=== PATIENT | male | born 2000 | race Caucasian/White ===

== ENCOUNTER 2021-03-02 08:55 | Emergency (ER) | payer SELFPAY ==
[2021-03-02 09:09] VITALS: BP 137/78; PULSE 76; RESP 16; TEMP 36.7; O2SAT 95; BMI 33.7
--- NOTE | 2021-03-02 09:27 | ED_ITS ---
HPI - Skin/Abscess/Foreign Bdy General: Chief complaint: Skin/Abscess/Foreign Body Stated complaint: rash Time Seen by Provider: 03/02/21 08:56 Source: patient Mode of arrival: ambulatory Limitations: no limitations History of Present Illness: HPI narrative: Patient is a nice 21-year-old male who presents to ED today with a complaint of a rash to his left forearm, anterior chest and abdomen, and face. He states rash is burning and pruritic and has noticed a few areas of weeping. He does state he is active and often outside. No systemic symptoms. MD complaint: rash Onset (ago): day(s) Tetanus up to date: yes Location: generalized Severity: moderate Quality: burning and pruritic Relieving factors: none Exacerbating factors: none Associated symptoms: Reports no associated symptoms; Deny chills, fever(s), nausea or vomiting Treatments prior to arrival: none Review of Systems Const: Denies: fever(s), chills, body aches, fatigue or malaise Eyes: Denies: change in vision or blurry vision ENMT: Denies: odynophagia, nasal discharge or nasal congestion Card: Denies: chest pain Resp: Denies: dyspnea GI: Denies: abdominal pain, nausea or vomiting Musc: Denies: neck pain, back pain, extremity pain or joint pain Skin/Breast: Reports: rash and pruritus Neuro: Denies: headache(s), numbness in extremities, weakness in extremities or sensory changes Physical Exam Const: COMMON NORMALS: no acute distress, patient oriented x3, no limitations and alert GENERAL APPEARANCE: cooperative Neck/C-Spine: COMMON NORMALS: no lymphadenopathy and no meningeal signs Resp: COMMON NORMALS: normal respiratory effort Extremity: GENERAL: Yes normal exam except as noted Neuro: COMMON NORMALS: patient oriented x3 SENSORIUM/ORIENTATION: Yes alert MENINGEAL SIGNS: Yes no meningeal signs Skin: NARRATIVE SKIN EXAM: eythematous maculopapular rash with few areas of linear streaking and weeping/yellow crusting to L dorsal forearm, under R orbit and over anterior chest/abdomen; rash is consistent with plant dermatitis Course Vital Signs: Vital signs: Vital Signs Temperature 98.0 F 03/02/21 09:09 Pulse Rate 76 03/02/21 09:09 Respiratory Rate 16 03/02/21 09:09 Blood Pressure 137/78 03/02/21 09:09 Pulse Oximetry 95 03/02/21 09:09 Discharge Plan Discharge Patient Disposition: Home Clinical Impression: Contact dermatitis due to plant Condition: Stable Discharge Orders: Discharge ED (Routine); Ordered 03/02/21 Ordered By: Kendra Jalloh Patient Instructions: [place] [place] (ED), [facility] [place], [place], and [place] - Adult Coding Level of Care Code ED Gardening Instructor for Chg Fwd Exam Expanded Problem Focused
[2021-03-02] MEDS: triamcinolone 40 mg/mL SDV IM (09:43)
[2021-03-02] MEDS: hydrocortisone 100 mg/2 mL SDV IM (09:44)
== END 2021-03-02 09:49 | disposition home or self-care (01) ==
PROVIDERS: Emergency Provider Physician Assistant
DX: L25.5 Unspecified contact dermatitis due to plants, except food (principal)
CPT/HCPCS: 96372; 99283; J1720; J3301

== ENCOUNTER 2022-01-05 14:43 | Emergency (ER) | payer SELFPAY ==
[2022-01-05 15:15] VITALS: BP 136/94; PULSE 55; RESP 18; TEMP 36.6; O2SAT 100; BMI 36.0
[2022-01-05 15:43] LABS: Basophils # 0.1 10^3/uL (0.0-0.1); Basophils % 0.3 %; Eosinophils % 0.2 %; Hematocrit 47.7 % (42.0-52.0); Hemoglobin 16.8 g/dL (11.7-16.6); Lymphocytes # 1.3 10^3/uL (0.8-4.8); Lymphocytes % 6.2 %; Mean Corpuscular HGB Conc 35.2 g/dL (30.0-36.0); Mean Corpuscular Hemoglobin 29.3 pg (28.0-34.0); Mean Corpuscular Volume 83.1 fl (80-94); Mean Platelet Volume 10.5 fL (7.4-10.4); Monocytes # 0.6 10^3/uL (0.2-0.9); Neutrophils # 18.49 10^3/uL (1.8-7.7); Nucleated Red Blood Cells % 0 %; Platelet Count 277 10^3/cmm (130-400); Red Blood Count 5.74 10^6/uL (4.1-5.3); White Blood Count 20.6 10^3/uL (4.0-10.0)
[2022-01-05 16:08] LABS: Alanine Aminotransferase 30 U/L (0-41); Albumin Level 4.9 g/dL (3.5-5.2); Alkaline Phosphatase 77 IU/L (40-130); Anion Gap 16.5 (5-19); Aspartate Amino Transferase 19 U/L (0-40); Blood Urea Nitrogen 11 mg/dL (6-20); Calcium 9.2 mg/dL (8.5-10.5); Carbon Dioxide 25 mmol/L (22-29); Chloride 101 mmol/L (98-107); Globulin 2.5 g/dL (1.3-4.6); Glucose 111 mg/dL (65-115); Lipase 22 U/L (13-60); Osmolality Calculated 286 mOsm/kg (285-295); Potassium 4.5 mmol/L (3.5-5.1); Sodium 138 mmol/L (136-145); Total Bilirubin 0.7 mg/dL (0.15-1.2); Total Protein 7.4 g/dL (6.6-8.7)
[2022-01-05 16:12] LABS: Add Urine Microscopic? YES; Bilirubin Urine Neg (Negative); Blood Urine 2+ (Negative); Glucose Urine UA Norm (Normal); Ketones Urine Negative (Negative); Leukocyte Esterase Urine Negative (Negative); Nitrate Urine Negative (Negative); Protein Urine Neg (Negative); Urine Appearance Clear (CLEAR); Urine Color Dark Yellow (Yellow); Urobilinogen Urine Norm (Negative); pH Urine 5 (5-7)
--- NOTE | 2022-01-05 16:14 | CTR_ITS ---
PROCEDURE INFORMATION: Exam: CT Abdomen And Pelvis Without Contrast Exam date and time: 01/05/2022 4:38 PM Age: 21 years old Clinical indication: Abdominal pain; Additional info: Periumbilical/lower ab pain; N/v/d TECHNIQUE: Imaging protocol: Computed tomography of the abdomen and pelvis without contrast. Radiation optimization: All CT scans at this facility use at least one of these dose optimization techniques: automated exposure control; mA and/or kV adjustment per patient size (includes targeted exams where dose is matched to clinical indication); or iterative reconstruction. COMPARISON: No relevant prior studies available. RADIATION DOSE METRICS: Total DLP (mGy-cm): 1552.34 FINDINGS: Liver: Normal. No mass. Gallbladder and bile ducts: Normal. No calcified stones. No ductal dilation. Pancreas: Normal. No ductal dilation. Spleen: Normal. No splenomegaly. Adrenal glands: Normal. No mass. Kidneys and ureters: Normal. No hydronephrosis. Stomach and bowel: Unremarkable. No obstruction. No mucosal thickening. Appendix: No evidence of appendicitis. Intraperitoneal space: Unremarkable. No free air. No significant fluid collection. Vasculature: Unremarkable. No abdominal aortic aneurysm. Lymph nodes: Unremarkable. No enlarged lymph nodes. Urinary bladder: Unremarkable as visualized. Reproductive: Unremarkable as visualized. Bones/joints: No acute fracture. Soft tissues: Unremarkable. CT/CT abdomen pelvis con [id number] IMPRESSION: No acute findings.
--- NOTE | 2022-01-05 16:14 | ED_ITS ---
Documented by User: HERB Carrington 01/10/22 07:01 HPI - Abdominal Pain General: Chief Complaint: Abdominal Pain Stated Complaint: Sever ABD pain Time Seen by Provider: 01/05/22 15:21 Source: patient Mode of arrival: ambulatory Limitations: no limitations History of Present Illness: Patient is a nice 21-year-old female presents to ED today with a complaint of abdominal pain. Patient states he woke up this morning around 9 AM with pain localized around his periumbilical region and lower abdomen. He states throughout the course of the day the pain has progressively worsened. He is reporting approximately 6 episodes of nonbilious nonbloody emesis and 5 episodes of nonbloody and nonmelanotic diarrhea stools. He states he has not been running fevers but does have chills/sweats. He denies urinary symptoms. No flank pain. Patient has no significant PMH. No previous abdominal surgeries. Denies poor food exposures. MD elicited complaint: abdominal pain Pertinent past history: none Onset (ago): hour(s) Pain Consistency: constant Location: Periumbilical, RLQ, LLQ and Pelvis Severity: severe Quality: cramping and aching Radiation: none Migration to: no migration Exacerbating factors: nothing Relieving factors: nothing Associated Symptoms: Denies dysuria and hematuria Review of Systems GI: Reports: abdominal pain : Denies: flank pain, dysuria, hematuria or genital pain Musc: Denies: neck pain, back pain, extremity pain or joint pain Skin/Breast: Denies: rash Neuro: Denies: headache(s), numbness in extremities, weakness in extremities, sensory changes or dizziness Physical Exam Const: COMMON NORMALS: no limitations GENERAL APPEARANCE: cooperative and in distress (appears uncomfortable secondary to pain/nausea) NUTRITIONAL APPEARANCE: obese ORIENTATION/CONSCIOUSNESS: Yes awake, Yes oriented to person, Yes oriented to place and Yes oriented to time Resp: COMMON NORMALS: clear to auscultation bilaterally AUSCULTATION: clear to auscultation bilaterally Cardio: COMMON NORMALS: regular rhythm RHYTHM: regular rhythm GI: COMMON NORMALS: no masses INSPECTION: Yes normal to inspection : COMMON NORMALS: Yes no CVA tenderness BLADDER/KIDNEY EXAM: Yes no CVA tenderness Back/Pelvis: COMMON NORMALS: no CVA tenderness Neuro: SENSORIUM/ORIENTATION: Yes oriented to person, Yes oriented to place and Yes oriented to time Course Vital Signs: Vital signs: Vital Signs Temperature 96.5 F L 01/05/22 18:04 Pulse Rate 60 01/05/22 18:04 Respiratory Rate 20 H 01/05/22 18:04 Blood Pressure 158/96 01/05/22 18:04 Pulse Oximetry 98 01/05/22 18:04 MDM - Abdominal Pain Lab Data : 01/05/22 15:25 01/05/22 15:25 Labs/Radiology: Radiology Impressions Abdomen/Pelvis CT 01/05/22 16:14 IMPRESSION: No acute findings. Laboratory Results WBC 20.6 10^3/uL (4.0-10.0) H 01/05/22 15:25 RBC 5.74 10^6/uL (4.1-5.3) H 01/05/22 15:25 Hgb 16.8 g/dL (11.7-16.6) H 01/05/22 15:25 Hct 47.7 % (42.0-52.0) 01/05/22 15:25 MCV 83.1 fl (80-94) 01/05/22 15:25 MCH 29.3 pg (28.0-34.0) 01/05/22 15:25 MCHC 35.2 g/dL (30.0-36.0) 01/05/22 15:25 RDW 13.0 % (12.1-15.1) 01/05/22 15:25 Plt Count 277 10^3/cmm (130-400) 01/05/22 15:25 MPV 10.5 fL (7.4-10.4) H 01/05/22 15:25 Neut % (Auto) 90.0 % 01/05/22 15:25 Lymph % (Auto) 6.2 % 01/05/22 15:25 [place] % (Auto) 3.0 % 01/05/22 15:25 Eos % (Auto) 0.2 % 01/05/22 15:25 Baso % (Auto) 0.3 % 01/05/22 15:25 Neut # (Auto) 18.49 10^3/uL (1.8-7.7) H 01/05/22 15:25 Lymph # (Auto) 1.3 10^3/uL (0.8-4.8) 01/05/22 15:25 [place] # (Auto) 0.6 10^3/uL (0.2-0.9) 01/05/22 15:25 Eos # (Auto) 0.0 10^3/uL (0.0-0.8) 01/05/22 15:25 Baso # (Auto) 0.1 10^3/uL (0.0-0.1) 01/05/22 15:25 Nucleated RBC % (auto) 0 % 01/05/22 15:25 Nucleated RBCs # 0.0 /100WBC 01/05/22 15:25 Sodium 138 mmol/L (136-145) 01/05/22 15:25 Potassium 4.5 mmol/L (3.5-5.1) 01/05/22 15:25 Chloride 101 mmol/L (98-107) 01/05/22 15:25 Carbon Dioxide 25 mmol/L (22-29) 01/05/22 15:25 Anion Gap 16.5 (5-19) 01/05/22 15:25 BUN 11 mg/dL (6-20) 01/05/22 15:25 Creatinine 0.7 mg/dL (0.7-1.2) 01/05/22 15:25 GFR Calculation 141.0 mL/min (90-130) H 01/05/22 15:25 Glucose 111 mg/dL (65-115) 01/05/22 15:25 Calculated Osmolality 286 mOsm/kg (285-295) 01/05/22 15:25 Calcium 9.2 mg/dL (8.5-10.5) 01/05/22 15:25 Total Bilirubin 0.7 mg/dL (0.15-1.2) 01/05/22 15:25 AST 19 U/L (0-40) 01/05/22 15:25 ALT 30 U/L (0-41) 01/05/22 15:25 Alkaline Phosphatase 77 IU/L (40-130) 01/05/22 15:25 Total Protein 7.4 g/dL (6.6-8.7) 01/05/22 15:25 Albumin 4.9 g/dL (3.5-5.2) 01/05/22 15:25 Globulin 2.5 g/dL (1.3-4.6) 01/05/22 15:25 Lipase 22 U/L (13-60) 01/05/22 15:25 Urine Color Dark yellow (Yellow) 01/05/22 15:30 Urine Appearance Clear (CLEAR) 01/05/22 15:30 Urine pH 5 (5-7) 01/05/22 15:30 Ur Specific [place] 1.020 (1.005-1.030) 01/05/22 15:30 Urine Protein Neg (Negative) 01/05/22 15:30 Urine Glucose (UA) Norm (Normal) 01/05/22 15:30 Urine Ketones Negative (Negative) 01/05/22 15:30 Urine Blood 2+ (Negative) H 01/05/22 15:30 Urine Nitrate Negative (Negative) 01/05/22 15: Urine Bilirubin Neg (Negative) 01/05/22 15:30 Urine Urobilinogen Norm mg/dL (Negative) 01/05/22 15:30 Ur Leukocyte Esterase Negative (Negative) 01/05/22 15:30 Urine RBC 0-4 /hpf (0-2) H 01/05/22 15:30 Urine WBC 0-4 /hpf (0-5) H 01/05/22 15:30 Ur Squamous Epith Cells 0-4 /hpf (0-5) H 01/05/22 15:30 Amorphous Sediment Not Reportable 01/05/22 15:30 Urine Bacteria None /hpf (NONE) 01/05/22 15:30 Urine Mucus 2+ /hpf 01/05/22 15:30 Discharge Plan Discharge Patient Disposition: Home Clinical Impression: Gastroenteritis Condition: Stable Prescriptions: New hydrocodone-acetaminophen 5-325 mg tablet 1 tab PO Q6H PRN (Reason: pain) Qty: 7 0RF ondansetron 4 mg tablet,disintegrating 4 mg PO Q8H PRN (Reason: nausea and vomiting) Qty: 7 0RF Discharge Orders: Discharge ED (Routine); Ordered 01/05/22 Ordered By: Irwin Hamilton Discharge Diet: Advance as tolerated Discharge Activity: Increase activity as tolerated Patient Instructions: Gastroenteritis (ED), Opioid Safety Activity Restrictions/Additional Instructions: Clear liquid diet until abdominal pain resolves. Start with frequent sips of water or electrolyte solution. Add Jell-O and other clear liquid broths as tolerated. Increase diet slowly by adding puddings and sherbet, then increase to a bland diet with foods like bananas, rice, apples, toast, boiled chicken. Most often the nausea and vomiting and abdominal pain resolved within 48 to 72 hours. Vomiting usually resolves within the first 24 hours and diarrhea will resolve within 3 days. Monitor for high fever greater than 100.4, or blood in vomit or stool, if you notice any of these signs you need to be reevaluated. Follow-up with primary care as needed. Return to ER for worsening symptoms or new concerns. Stand Alone Forms: Work/School Release Sign Out Sign Out Data: Patient Sign Out occurred on 01/05/22 at 16:54. Patient's care was discussed, and care was transferred from to Irwin Hamilton. Coding Level of Care Code ED Senior Quality Analyst for Chg Fwd Exam Detailed Documented by User: MARY Kahn 01/05/22 17:26 HPI - Abdominal Pain General: Chief Complaint: Abdominal Pain Stated Complaint: Sever ABD pain Time Seen by Provider: 01/05/22 15:21 History of Present Illness: Associated Symptoms: Reports diarrhea, nausea and vomiting; Denies fever(s) Review of Systems Const: Denies: fever(s) Card: Denies: chest pain Resp: Denies: dyspnea GI: Reports: nausea, vomiting and diarrhea Physical Exam Const: COMMON NORMALS: alert HENMT: COMMON NORMALS: normocephalic HEAD & SCALP: normocephalic Resp: COMMON NORMALS: normal respiratory effort Cardio: COMMON NORMALS: regular rate RATE: regular rate GI: COMMON NORMALS: Soft to palpation AUSCULTATION: Yes Hyperactive bowel sounds present PALPATION: Yes Soft to palpation, Yes Tenderness to palpation present (GI) (Periumbilical), No Guarding due to palpation present (GI) and No Rebound tenderness present Extremity: COMMON NORMALS: normal to inspection Neuro: SENSORIUM/ORIENTATION: Yes alert Course Vital Signs: Vital signs: Vital Signs Temperature 96.5 F L 01/05/22 18:04 Pulse Rate 60 01/05/22 18:04 Respiratory Rate 20 H 01/05/22 18:04 Blood Pressure 158/96 01/05/22 18:04 Pulse Oximetry 98 01/05/22 18:04 MDM - Abdominal Pain Medical Decision Making 21-year-old male patient comes in today with episodes of nausea vomiting and diarrhea starting this morning. Patient reports abdominal pain around the periumbilical area. On exam abdomen is soft with some hyperactive bowel sounds. No guarding or rebound tenderness was noted. Vital signs were normal. Patient appeared unwell. Differential diagnosis includes appendicitis, gastroenteritis, renal calculi. Laboratory values noted white blood cell count of 20,000, CMP was unremarkable, urinalysis had trace of blood. CT of the abdomen pelvis was informed and noted no acute abnormalities, with no signs of appendicitis or renal calculi. Patient was treated for gastroenteritis with IV fluids and medications for pain and nausea. Patient was able to tolerate sips of oral liquid. Reviewed recommendations for monitoring for fever or worsening symptoms. Patient should return as needed. Patient reported understanding agreed to plan. Lab Data : 01/05/22 15:25 01/05/22 15:25 Labs/Radiology: Radiology Impressions Abdomen/Pelvis CT 01/05/22 16:14 IMPRESSION: No acute findings. Laboratory Results WBC 20.6 10^3/uL (4.0-10.0) H 01/05/22 15:25 RBC 5.74 10^6/uL (4.1-5.3) H 01/05/22 15:25 Hgb 16.8 g/dL (11.7-16.6) H 01/05/22 15:25 Hct 47.7 % (42.0-52.0) 01/05/22 15:25 MCV 83.1 fl (80-94) 01/05/22 15:25 MCH 29.3 pg (28.0-34.0) 01/05/22 15:25 MCHC 35.2 g/dL (30.0-36.0) 01/05/22 15:25 RDW 13.0 % (12.1-15.1) 01/05/22 15:25 Plt Count 277 10^3/cmm (130-400) 01/05/22 15:25 MPV 10.5 fL (7.4-10.4) H 01/05/22 15:25 Neut % (Auto) 90.0 % 01/05/22 15:25 Lymph % (Auto) 6.2 % 01/05/22 15:25 [place] % (Auto) 3.0 % 01/05/22 15:25 Eos % (Auto) 0.2 % 01/05/22 15:25 Baso % (Auto) 0.3 % 01/05/22 15:25 Neut # (Auto) 18.49 10^3/uL (1.8-7.7) H 01/05/22 15:25 Lymph # (Auto) 1.3 10^3/uL (0.8-4.8) 01/05/22 15:25 [place] # (Auto) 0.6 10^3/uL (0.2-0.9) 01/05/22 15:25 Eos # (Auto) 0.0 10^3/uL (0.0-0.8) 01/05/22 15:25 Baso # (Auto) 0.1 10^3/uL (0.0-0.1) 01/05/22 15:25 Nucleated RBC % (auto) 0 % 01/05/22 15:25 Nucleated RBCs # 0.0 /100WBC 01/05/22 15:25 Sodium 138 mmol/L (136-145) 01/05/22 15:25 Potassium 4.5 mmol/L (3.5-5.1) 01/05/22 15:25 Chloride 101 mmol/L (98-107) 01/05/22 15:25 Carbon Dioxide 25 mmol/L (22-29) 01/05/22 15:25 Anion Gap 16.5 (5-19) 01/05/22 15:25 BUN 11 mg/dL (6-20) 01/05/22 15:25 Creatinine 0.7 mg/dL (0.7-1.2) 01/05/22 15:25 GFR Calculation 141.0 mL/min (90-130) H 01/05/22 15:25 Glucose 111 mg/dL (65-115) 01/05/22 15:25 Calculated Osmolality 286 mOsm/kg (285-295) 01/05/22 15:25 Calcium 9.2 mg/dL (8.5-10.5) 01/05/22 15:25 Total Bilirubin 0.7 mg/dL (0.15-1.2) 01/05/22 15:25 AST 19 U/L (0-40) 01/05/22 15:25 ALT 30 U/L (0-41) 01/05/22 15:25 Alkaline Phosphatase 77 IU/L (40-130) 01/05/22 15:25 Total Protein 7.4 g/dL (6.6-8.7) 01/05/22 15: Albumin 4.9 g/dL (3.5-5.2) 01/05/22 15: Globulin 2.5 g/dL (1.3-4.6) 01/05/22 15: Lipase 22 U/L (13-60) 01/05/22 15: Urine Color Dark yellow (Yellow) 01/05/22 15:30 Urine Appearance Clear (CLEAR) 01/05/22 15: Urine pH 5 (5-7) 01/05/22 15:30 Ur Specific [place] 1.020 (1.005-1.030) 01/05/22 15:30 Urine Protein Neg (Negative) 01/05/22 15:30 Urine Glucose (UA) Norm (Normal) 01/05/22 15:30 Urine Ketones Negative (Negative) 01/05/22 15:30 Urine Blood 2+ (Negative) H 01/05/22 15:30 Urine Nitrate Negative (Negative) 01/05/22 15:30 Urine Bilirubin Neg (Negative) 01/05/22 15:30 Urine Urobilinogen Norm mg/dL (Negative) 01/05/22 15:30 Ur Leukocyte Esterase Negative (Negative) 01/05/22 15:30 Urine RBC 0-4 /hpf (0-2) H 01/05/22 15:30 Urine WBC 0-4 /hpf (0-5) H 01/05/22 15:30 Ur Squamous Epith Cells 0-4 /hpf (0-5) H 01/05/22 15:30 Amorphous Sediment Not Reportable 01/05/22 15:30 Urine Bacteria None /hpf (NONE) 01/05/22 15:30 Urine Mucus 2+ /hpf 01/05/22 15:30 Discharge Plan Discharge Patient Disposition: Home Clinical Impression: Gastroenteritis Condition: Stable Prescriptions: New hydrocodone-acetaminophen 5-325 mg tablet 1 tab PO Q6H PRN (Reason: pain) Qty: 7 0RF ondansetron 4 mg tablet,disintegrating 4 mg PO Q8H PRN (Reason: nausea and vomiting) Qty: 7 0RF Discharge Orders: Discharge ED (Routine); Ordered 01/05/22 Ordered By: Irwin Hamilton Discharge Diet: Advance as tolerated Discharge Activity: Increase activity as tolerated Patient Instructions: Gastroenteritis (ED), Opioid Safety Activity Restrictions/Additional Instructions: Clear liquid diet until abdominal pain resolves. Start with frequent sips of water or electrolyte solution. Add Jell-O and other clear liquid broths as tolerated. Increase diet slowly by adding puddings and sherbet, then increase to a bland diet with foods like bananas, rice, apples, toast, boiled chicken. Most often the nausea and vomiting and abdominal pain resolved within 48 to 72 hours. Vomiting usually resolves within the first 24 hours and diarrhea will resolve within 3 days. Monitor for high fever greater than 100.4, or blood in vomit or stool, if you notice any of these signs you need to be reevaluated. Follow-up with primary care as needed. Return to ER for worsening symptoms or new concerns. Stand Alone Forms: Work/School Release Sign Out Sign Out Data: Patient Sign Out occurred on 01/05/22 at 16:54. Patient's care was discussed, and care was transferred from to Irwin Hamilton. Coding Level of Care Code ED Senior Quality Analyst for Chg Fwd Exam Detailed
[2022-01-05] MEDS: sodium chloride 0.9% 1,000 ML 999 ML IV ×2 (16:22→17:09)
[2022-01-05] MEDS: ondansetron 2 mg/ML SDV 2 mL 4 MG IVP (16:23)
[2022-01-05 16:24] VITALS: RESP 20
[2022-01-05] MEDS: morphine 4 mg/mL SDV 1 mL IVP ×2 (16:24→17:08)
[2022-01-05 16:39] LABS: Add Urine Culture? No; Mucus Urine 2+ /hpf; RBC Urine 0-4 /hpf (0-2); Squamous Epithelial Cell Urine 0-4 /hpf (0-5); WBC Urine 0-4 /hpf (0-5)
[2022-01-05 17:08] VITALS: RESP 17
[2022-01-05 18:04] VITALS: BP 158/96; PULSE 60; RESP 20; TEMP 35.8; O2SAT 98
== END 2022-01-05 18:06 | disposition home or self-care (01) ==
PROVIDERS: Physician Assistant; Emergency Provider Nurse Practitioner Family
DX: K52.9 Noninfective gastroenteritis and colitis, unspecified (principal)
CPT/HCPCS: 74176; 80053; 81001; 83690; 85025; 96361; 96374; 96375; 96376; 99284; J2270; J2405; J7030

== ENCOUNTER 2024-03-20 06:39 | Emergency (ER) | payer MEDICAID, SELFPAY ==
[2024-03-20 06:43] VITALS: BP 159/98; PULSE 113; RESP 16; TEMP 36.7; O2SAT 97; BMI 36.6
[2024-03-20 07:00] LABS: Glucose Point of Care 129 mg/dL (70-110)
[2024-03-20 07:04] LABS: Basophils % 0.6 %; Eosinophils # 0.1 10^3/uL (0.0-0.8); Eosinophils % 1.4 %; Hematocrit 45.7 % (37-53); Lymphocytes # 1.4 10^3/uL (0.8-4.8); Lymphocytes % 21.5 %; Mean Corpuscular HGB Conc 35.9 g/dL (30-55); Mean Corpuscular Hemoglobin 28.6 pg (27-33); Mean Corpuscular Volume 79.6 fl (82-101); Mean Platelet Volume 9.2 fL (7.4-10.4); Monocytes # 0.8 10^3/uL (0.2-0.9); Monocytes % 12.7 %; Neutrophils % 63.2 %; Nucleated Red Blood Cells % 0 %; Platelet Count 240 10^3/cmm (157-399); Red Blood Count 5.74 10^6/uL (3.85-5.65); Red Cell Distribution Width 12.4 % (12.1-15.1); White Blood Count 6.64 10^3/uL (3.29-11.43)
[2024-03-20] MEDS: ondansetron 2 mg/ML SDV 2 mL 4 MG IVP (07:09)
--- NOTE | 2024-03-20 07:09 | W.ED.NAVMDI ---
HPI - Nausea/Vomiting/Diarrhea General: Chief complaint: Nausea/Vomiting/Diarrhea Stated complaint: n/v, shaking, dizziness, headache Time Seen by Provider: 03/20/24 06:54 History of Present Illness: 24-year-old male presents emergency room complaining of abdominal pain with intermittent nausea and vomiting for the last several weeks. States he will vomit 1-3 times a day. Has polyphagia along with dizziness. Patient denies any abdominal or chest pain at this time. Denies any dysuria urgency or frequency denies any shortness of breath. No rash. He does frequently get tick bites. 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 He denies any medic easy melena hematemesis or coffee-ground emesis. He does smoke denies use alcohol in the past he has used recreational marijuana but is not using any at this time. MD elicited complaint: nausea, vomiting and abdominal pain Onset (ago): week(s) Description of vomiting: watery and bilious Associated nausea: Yes Exacerbating factors: other (Heat exposure) Relieving factors: other (Being indoors/air conditioning) Associated symtoms: Reports nausea; Denies chest pain or dysuria Review of Systems Const: Denies: fever(s) or chills Card: Denies: chest pain Resp: Denies: dyspnea GI: Reports: nausea and vomiting; Denies: abdominal pain, hematemesis, hematochezia or melena : Denies: dysuria, urinary frequency or urinary urgency Musc: Denies: neck pain or back pain Skin/Breast: Denies: rash PFSH ED PFSH: Medical History (Updated 03/20/24 @ 08:37 by Issa Haider DO) No significant past medical history Surgical History (Updated 03/20/24 @ 07:18 by Issa Haider DO) No significant past surgical history Social History (Updated 03/20/24 @ 07:17 by Issa Haider DO) Smoking and tobacco/nicotine status: current every day tobacco/nicotine user Alcohol intake: never Substance/Drug Use: former Former substance use details: Recreational marijuana use has stopped Physical Exam Const: COMMON NORMALS: no acute distress GENERAL APPEARANCE: cooperative and comfortable ORIENTATION/CONSCIOUSNESS: Yes awake, Yes oriented to person, Yes oriented to place and Yes oriented to time HENMT: COMMON NORMALS: normocephalic, atraumatic and hearing grossly normal bilaterally HEAD & SCALP: normocephalic and atraumatic Resp: COMMON NORMALS: normal respiratory effort, No retractions, No use of accessory muscles and clear to auscultation bilaterally AUSCULTATION: clear to auscultation bilaterally Cardio: COMMON NORMALS: regular rate, regular rhythm and No murmurs present (Cardio) RATE: regular rate RHYTHM: regular rhythm GI: COMMON NORMALS: Soft to palpation and No hepatosplenomegaly present AUSCULTATION: Yes normoactive bowel sounds PALPATION: Yes Soft to palpation, No Tenderness to palpation present (GI), No Guarding due to palpation present (GI) and Yes No hepatosplenomegaly present Extremity: COMMON NORMALS: normal to inspection, capillary refill normal, no clubbing, cyanosis or edema, no calf tenderness and no pedal edema Neuro: SENSORIUM/ORIENTATION: Yes oriented to person, Yes oriented to place and Yes oriented to time Skin: COMMON NORMALS: no rashes or lesions noted GENERAL SKIN EXAM: no rashes or lesions noted Course Vital Signs: Vital signs: Vital Signs Temperature 98.0 F 03/20/24 06:43 Pulse Rate 98 03/20/24 09:06 Respiratory Rate 16 03/20/24 06:43 Blood Pressure 159/98 03/20/24 09:06 Pulse Oximetry 96 03/20/24 09:06 Oxygen Delivery Me thod Room Air 03/20/24 09:06 MDM - Nausea/Vomiting/Diarrhea Medical Decision Making Patient reports feeling better after having had IV fluids. He is refusing any further evaluation declines the CT. Laboratory tests were unremarkable. Will discharge patient home per his request. His BT bili was elevated but the remainder of his liver functions were normal. Will have him follow-up with his primary care doctor. Recommend avoiding spicy foods etc. also started on pantoprazole return if has further problems. Lab Data 03/20/24 06:46 03/20/24 06:46 Laboratory Results WBC 6.64 10^3/uL (3.29-11.43) 03/20/24 06:46 RBC 5.74 10^6/uL (3.85-5.65) H 03/20/24 06:46 Hgb 16.40 g/dL (11.27-16.99) 03/20/24 06:46 Hct 45.7 % (37-53) 03/20/24 06:46 MCV 79.6 fl (82-101) L 03/20/24 06:46 MCH 28.6 pg (27-33) 03/20/24 06:46 MCHC 35.9 g/dL (30-55) 03/20/24 06:46 RDW 12.4 % (12.1-15.1) 03/20/24 06:46 Plt Count 240 10^3/cmm (157-399) 03/20/24 06:46 MPV 9.2 fL (7.4-10.4) 03/20/24 06:46 Neut % (Auto) 63.2 % 03/20/24 06:46 Lymph % (Auto) 21.5 % 03/20/24 06:46 [place] % (Auto) 12.7 % 03/20/24 06:46 Eos % (Auto) 1.4 % 03/20/24 06:46 Baso % (Auto) 0.6 % 03/20/24 06:46 Neut # (Auto) 4.20 10^3/uL (1.8-7.7) 03/20/24 06:46 Lymph # (Auto) 1.4 10^3/uL (0.8-4.8) 03/20/24 06:46 [place] # (Auto) 0.8 10^3/uL (0.2-0.9) 03/20/24 06:46 Eos # (Auto) 0.1 10^3/uL (0.0-0.8) 03/20/24 06:46 Baso # (Auto) 0.0 10^3/uL (0.0-0.1) 03/20/24 06:46 Nucleated RBC % (auto) 0 % 03/20/24 06:46 Nucleated RBCs # 0.0 /100WBC 03/20/24 06:46 Sodium 138 mmol/L (136-145) 03/20/24 06:46 Potassium 4.2 mmol/L (3.5-5.1) 03/20/24 06:46 Chloride 102 mmol/L (98-107) 03/20/24 06:46 Carbon Dioxide 25 mmol/L (22-29) 03/20/24 06:46 Anion Gap 15.2 (5-19) 03/20/24 06:46 BUN 18 mg/dL (6-20) 03/20/24 06:46 Creatinine 0.8 mg/dL (0.7-1.2) 03/20/24 06:46 GFR Calculation 117.8 mL/min (90-130) 03/20/24 06:46 Glucose 101 mg/dL (65-115) 03/20/24 06:46 POC Glucose 129 mg/dL (70-110) H 03/20/24 06:56 Calculated Osmolality 288 mOsm/kg (285-295) 03/20/24 06:46 Lactic Acid 1.1 mmol/L (0.5-2.2) 03/20/24 06:46 Calcium 9.8 mg/dL (8.5-10.5) 03/20/24 06:46 Total Bilirubin 1.7 mg/dL (0.15-1.2) H 03/20/24 06:46 AST 14 U/L (0-40) 03/20/24 06:46 ALT 22 U/L (0-41) 03/20/24 06:46 Alkaline Phosphatase 88 U/L (40-130) 03/20/24 06:46 Total Protein 8.0 g/dL (6.6-8.7) 03/20/24 06:46 Albumin 4.6 g/dL (3.5-5.2) 03/20/24 06:46 Globulin 3.4 g/dL (1.3-4.6) 03/20/24 06:46 Urine Color Dark yellow (Yellow) A 03/20/24 06:46 Urine Appearance Clear (CLEAR) 03/20/24 06:46 Urine pH TNP 03/20/24 06:46 Ur Specific [place] TNP 03/20/24 06:46 Urine Protein TNP 03/20/24 06:46 Urine Glucose (UA) TNP 03/20/24 06:46 Urine Ketones TNP 03/20/24 06:46 Urine Blood TNP 03/20/24 06:46 Urine Nitrate TNP 03/20/24 06:46 Urine Bilirubin TNP 03/20/24 06:46 Urine Urobilinogen TNP 03/20/24 06:46 Ur Leukocyte Esterase TNP 03/20/24 06:46 Urine RBC None /hpf (0-2) 03/20/24 06:46 Urine WBC None /hpf (0-5) 03/20/24 06:46 Ur Squamous Epith Cells None /hpf (0-5) 03/20/24 06:46 Amorphous Sediment Not Reportable 03/20/24 06:46 Urine Bacteria 1+ /hpf (NONE) H 03/20/24 06:46 Fine Granular Casts 0-4 /lpf H 03/20/24 06:46 Urine Mucus 2+ /hpf 03/20/24 06:46 No radiology studies performed this visit Discharge Plan Discharge Patient Disposition: Home Clinical Impression: Abdominal pain, Nausea & vomiting Condition: Stable Prescriptions: New pantoprazole 40 mg tablet,delayed release (DR/EC) 40 mg PO DAILY Qty: 30 0RF No Action hydrocodone-acetaminophen 5-325 mg tablet 1 tab PO Q6H PRN (Reason: pain) Qty: 7 0RF ondansetron 4 mg tablet,disintegrating 4 mg PO Q8H PRN (Reason: nausea and vomiting) Qty: 7 0RF Discharge Orders: Discharge ED (Routine); Ordered 03/20/24 Ordered By: Issa Haider Discharge Diet: As Directed Discharge Activity: Increase activity as tolerated Patient Instructions: Diet for Stomach Ulcers and Gastritis (ED), Abdominal Pain (ED), Opioid Safety, Pain Management Activity Restrictions/Additional Instructions: Thank you for choosing [facility] for your healthcare needs today. It is very important that you follow up as instructed or that you return to the Emergency Department should you have concerns or if your condition changes or worsens in any way. You were seen today with complaints of intermittent abdominal pain with nausea and vomiting. Your white count was normal your blood sugar was mildly elevated. There is a slight elevation in your bilirubin the remainder of your labs are otherwise unremarkable. Since she declined the CT of the abdomen pelvis the workup was incomplete. Based on the history given at the time of evaluation suspect some of this may be reflux at may also be volume depletion from heat exposure. Recommend increasing fluid intake start pantoprazole avoid spicy foods carbonated beverages and follow-up with your primary care doctor if not improving. You are given pantoprazole to take to help with stomach discomfort take 1 tablet daily. Follow-up with your doctor to discuss if the medication is effective and whether or not you should continue on it. Return to the emergency room if you have further problems. Coding Level of Care Code ED Mirror Polisher for Mario Robins
[2024-03-20] MEDS: sodium chloride 0.9% 1,000 ML 999 ML IV ×2 (07:11→07:56)
[2024-03-20 07:12] LABS: Alanine Aminotransferase 22 U/L (0-41); Albumin Level 4.6 g/dL (3.5-5.2); Alkaline Phosphatase 88 U/L (40-130); Anion Gap 15.2 (5-19); Aspartate Amino Transferase 14 U/L (0-40); Blood Urea Nitrogen 18 mg/dL (6-20); Calcium 9.8 mg/dL (8.5-10.5); Carbon Dioxide 25 mmol/L (22-29); Chloride 102 mmol/L (98-107); Creatinine Clr Calc Pharmacy 229.9744; Globulin 3.4 g/dL (1.3-4.6); Glomerular Filtration Rate 117.8 mL/min (90-130); Glucose 101 mg/dL (65-115); Osmolality Calculated 288 mOsm/kg (285-295); Potassium 4.2 mmol/L (3.5-5.1); Sodium 138 mmol/L (136-145); Total Bilirubin 1.7 mg/dL (0.15-1.2)
[2024-03-20 07:13] LABS: Lactic Sepsis W/Reflex 1.1 mmol/L (0.5-2.2)
[2024-03-20 07:27] LABS: Charge for UA Resulting for Rev
[2024-03-20 07:58] LABS: Urine Appearance Clear (CLEAR); Urine Color Dark Yellow (Yellow)
[2024-03-20 08:00] LABS: Add Urine Culture? No; Bacteria Urine 1+ /hpf; Fine Granular Casts Urine 0-4 /lpf; Mucus Urine 2+ /hpf
[2024-03-20 09:06] VITALS: BP 159/98; PULSE 98; O2SAT 96
[2024-03-21 13:25] LABS: Lyme AB Screen <0.90 index
[2024-03-26 17:19] LABS: E. Chaffeensis AB IGM 1:20
[2024-03-27 16:49] LABS: RMSF IGG DETECTED; RMSF IGM NOT DETECTED
== END 2024-03-20 09:10 | disposition home or self-care (01) ==
PROVIDERS: Emergency Provider Family Medicine
DX: R10.9 Unspecified abdominal pain (principal); R11.2 Nausea with vomiting, unspecified; Z72.0 Tobacco use
CPT/HCPCS: 36415; 36416; 80053; 81003; 81015; 82962; 83605; 85025; 86618; 86666; 86757; 87040; 96361; 96374; 99285; J2405; J7030